=== PATIENT | female | born 1935 | race Caucasian/White ===

== ENCOUNTER 2016-11-04 08:15 | Day surgery (SDC) | payer MEDICARE, BC ==
[2016-11-04] MEDS ORDERED: ACETAMINOPHEN 325 MG ONE (08:22)
[2016-11-04] MEDS: PROPARACAINE HCL 0.5% OPHTHALMIC SOL ONE ×3 (08:41→10:18)
[2016-11-04] MEDS: CYCLOPENTOLATE 1% SOL ONE ×2 (08:41→08:53)
[2016-11-04] MEDS: PHENYLEPHRINE HCL 10% OPHTHAL SOL ONE ×4 (08:42→10:09)
[2016-11-04] MEDS: KETOROLAC 0.5% OPTH 60 DROP SOL ONE ×2 (08:42→08:54)
[2016-11-04] MEDS ORDERED: MOXIFLOXACIN-HOME SOL RIGHTEYE ONE ×3 (08:42→10:53)
[2016-11-04] MEDS ORDERED: FENTANYL CITRATE 50 MCG/ML SOL ONE (09:27)
[2016-11-04] MEDS ORDERED: MIDAZOLAM 2 MG/2 ML SOL ONE (09:28)
[2016-11-04] MEDS ORDERED: POVIDONE IODINE 5% SOL ONE (10:13)
[2016-11-04] MEDS ORDERED: BSS W/ 0.25MG P.F. EPI 1 BOTTLE ONE (10:13)
[2016-11-04] MEDS ORDERED: LIDOCAINE HCL 1% MPF SOL ONE (10:13)
[2016-11-04 11:18] VITALS: BP 145/69; PULSE 70; RESP 20; TEMP 98.1; O2SAT 98
[2016-11-04] MEDS ORDERED: ACETAZOLAMIDE 500 MG CER ONE (11:20)
== END 2016-11-04 11:30 | disposition home or self-care (01) | DRG 125 ==
LOC: SURG 08:15
PROVIDERS: ATTEND Ophthalmology
DX: H25.9 Unspecified age-related cataract (principal); H21.81 Floppy iris syndrome
CPT/HCPCS: J2250; J3010

== ENCOUNTER 2017-04-30 12:07 | Outpatient (CLI) | payer MEDICARE, BC ==
[2016-11-04 11:18] VITALS: O2SAT 98
== END 2017-04-30 12:08 | disposition home or self-care (01) | DRG 556 ==
LOC: CONVCARE 12:07
PROVIDERS: ATTEND Orthopaedic Surgery
DX: M25.552 Pain in left hip (principal)